=== PATIENT | female | born 1980 | race Caucasian/White ===

== ENCOUNTER → 2021-10-14 15:14 | Outpatient (CLI) | payer OTHER, SELFPAY ==
[2021-10-14 16:06] LABS: COVID19 -Nasal RAPID Negative (Negative)
== END ==
PROVIDERS: PCP Obstetrics & Gynecology; Visit Provider Obstetrics & Gynecology
DX: Z01.812 Encounter for preprocedural laboratory examination (principal); Z20.822 Contact with and (suspected) exposure to COVID-19
CPT/HCPCS: 87635

== ENCOUNTER 2021-10-15 12:19 | Day surgery (SDC) | payer OTHER, SELFPAY ==
[2021-10-14 08:20] VITALS: BMI 30.1
[2021-10-15] VITALS (12 sets, daily range): BP systolic 113–134; BP diastolic 68–81; PULSE 70–98; RESP 12–18; TEMP 36.3–37.3; O2SAT 96–100; BMI 30.1
--- NOTE | 2021-10-15 | PATH_ITS ---
[facility] Accession Number: [id number] . 01 Material submitted: . uterus - UTERUS, CERVIX, BILATERAL TUBES . 02 Diagnosis: Uterus, Cervix, Bilateral Fallopian Tubes, Hysterectomy and Bilateral Salpingectomy (Weight 142 grams): Cervix with prominent Nabothian gland cysts (anterior wall). Endocervix with prominent Nabothian gland cysts and no significant histomorphologic abnormality. Proliferative endometrium; negative for glandular hyperplasia, cytologic atypia, or malignancy. Myometrium with no significant histomorphologic abnormality. Uterine serosa with no significant histomorphologic abnormality. Fallopian tubes x2, complete cross sections; negative for atypia or malignancy. [facility] 10/21/2021 1530 Local . 02 Electronically signed: . Tosha Avelar MD, Pathologist NPI- [id number] . 01 Gross description: . The specimen is received in formalin, labeled uterus, cervix, bilateral tubes, and consists of a uterus (142 grams, 8.8 cm from fundus to cervix, 7.2 cm from cornu to cornu, 4.6 cm from anterior to posterior), and two detached fallopian tubes (3.2 x 1.0 cm and 3.3 x 0.6 cm). The anterior uterine wall is remarkable for a white-lopez firm to multiloculated lesion measuring 5.0 x 3.0 x 1.3 cm, and grossly abuts the anterior paracervical margin (inked green). The ectocervical mucosa is unremarkable, with a rounded and patent external os measuring 1.0 cm in diameter. Opening the uterus reveals an endometrial cavity measuring 4.2 cm in length x 2.8 cm in width. The endometrium (0.2 cm average thickness) is hemorrhagic, and upon sectioning, the myometrium (2.3 cm average thickness) is free of lesions or masses. Sectioning the fallopian tubes reveals stellate and patent lumens, free of gross abnormalities. The specimen is representatively submitted as follows: . A1: Entire fimbria and passenger representative cross sections of shorter fallopian tube. A2: Entire fimbria and passenger representative cross sections of longer fallopian tube. A3-A4: Bisected rep of anterior cervix at 12 o'clock, also to include closest approach to anterior paracervical margin. A5-A6: Full thickness reps of anterior endomyometrium. A7: Posterior cervix, 6 o'clock. A8-A9: Full thickness reps of posterior endomyometrium. ([id number]) /[facility] 10/16/2021 1714 Local . 02 Microscopic: . A panel of immunohistochemistry stains is performed to further evaluate the region of interest. The control stains show appropriate reactivity. . RESULTS: PAX8: Positive nuclear staining in regions of interest. CEA (Blocks A4 and A7): Patchy luminal staining in regions of interest. . The nuclear immunopositivity of PAX8 and lumnal immunostaining with CEA support an interpretation of prominent Nabothian gland cysts in this region and mitigate against minimal deviation adenocarcinoma. . . . * This test was developed and its performance characteristics determined by [facility]. It has not been cleared or approved by the U.S. Food and Drug Administration. The FDA has determined that such clearance or approval is not necessary. This test is used for clinical purposes. It should not be regarded as investigational or for research . 02 Pathologist provided ICD-10: N88.8 . 02 CPT . 969466, R83408, B29332 Specimen Comment: A courtesy copy of this report has been sent to [phone] Performed at: 01 [facility] [address] [place] [address], [place], [place] [id number] MD Jake Kelsey MD Phone: [phone] Performed at: 02 [facility] [address] [place] [id number] MD Lyly Ledesma MD Phone: [phone]
[2021-10-15] MEDS: LACTATED RINGERS 1,000 ML 42 ML IV ×2 (13:02→15:43)
--- NOTE | 2021-10-15 13:34 | PM.PREOP ---
Pre-operative Note COVID-19 COVID-19 status: Negative Result date/Date tested (Pos, Neg/Pending): 10/14/21 Criteria for continued procedure: Non-surgical alternatives not available or appropriate per current SOC Interval Note History & Physical reviewed/Exam performed by Physician: Yes Changes to H&P: No
[2021-10-15] MEDS: CEFAZOLIN 1 GM VIAL 2 GM IV (14:12)
--- NOTE | 2021-10-15 14:23 | SUR.OPER ---
Lithotomy on padded OR bed. Faucett Pad Positioner under torso. Head on pillow, arms padded and tucked at sides. Legs secured in padded yellow fins stirrups.
[2021-10-15] MEDS: ROPIVACAINE 0.2% PF 2 MG/ML 10ML AMP 20 ML INJ (15:29)
--- NOTE | 2021-10-15 16:11 | PM.GYNOP.1 ---
Operative Date/Time/Diagnoses Date of procedure: 10/15/21 Time of procedure: 14:00 Pre-op diagnosis: Menorrhagia Cervical inclusion cysts Post-coital bleeding Post-op diagnosis: same Procedure & Clinicians Procedure: Procedures Operation Date: 10/15/21 13:30 Actual Procedure Side Surgeon p Laparoscopic Assisted Vaginal Hysterectomy w. bilateral salpingectomies Not Applicable Ronald Fermin MD Indications: Sarai is a 41 yo LMP 08/23/2021 who was referred from [facility] for evaluation of postcoital bleeding, menorrhagia, and cervical cysts.? The patient experienced menarche at age 12 and has had regular predictable periods throughout her reproductive life.? Her periods have been heavy however lasting at least 3-4 days with the passage of clots and occasionally severe cramping.? The patient has in the past become anemic due to menstrual blood losses.? 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 Postcoital bleeding has continued since then and as part of evaluation for the postcoital bleeding as well as the menorrhagia, the patient underwent pelvic ultrasound in July 2021 which shows a normal anteverted uterus measuring 9.5 x 6.0 x 4.5 cm with a 6 mm endometrial stripe.? The cervix however has an elongated, mildly lobulated avascular cystic area adjacent to the anterior endocervix apparently in the anterior cervical wall measuring 2.4 x 2.8 x 0.9 cm with some faint internal linear markings.? Another 1.0 x 1.1 x 6.7 cm nabothian cyst of the cervix is seen slightly more inferior and posterior to the larger cystic lesion.? The cervix appears somewhat bulky and enlarged as a result of the cystic lesions especially is seen on transabdominal images.? The adnexae are unremarkable.? A follow-up pelvic MRI was obtained which showed multiple prominent cysts within the anterior cervix with the overall area of cysts measuring 4.3 x 3.0 x 1.7 cm in aggregate and confirm the presence of the smaller cervical cyst posteriorly.? No other abnormalities were noted.? Pap smear performed 07/29/2021 was normal and all Paps prior during her reproductive life have also been normal.? The patient denies any dyspareunia or intermenstrual spotting but does have to empty her bladder more frequently and feels sense of pelvic pressure in her bladder.? She denies UTI symptoms however. After consideration of all options, the patient has opted to proceed with laparoscopic-assisted vaginal hysterectomy with bilateral salpingectomy.? Patient is currently scheduled to have her surgery performed in the main OR of [facility] on 10/15/2021 and she presents today for her scheduled surgery. Surgeon: Ronald Fermin Associate Partner: Wilma Panchal Anesthesia Type: General Operative Notes Findings: The uterus is upper limits of normal size and both adnexa demonstrate changes consistent with prior partial salpingectomy for sterilization. Both ovaries are normal. Adjacent to the right cornua is an area of endometriosis involving the broad ligament and utero-ovarian ligament. This area was removed with the uterine specimen at the time of surgery. There was additionally a a superficial implant of endometriosis near the insertion of the right uterosacral ligament and it too was destroyed during the course of the surgery. The anterior aspect of the lower uterine segment had an elongated tubular appearing cystic structure consistent with an inclusion cyst from her prior cesareans which was most likely the cystic structure noted on imaging preop. The remainder of the pelvis and abdomen were normal to laparoscopic visualization. Closure Type: primary Specimen(s): portion of left tube, portion of right tube and uterus Applied: catheter Estimated blood loss (mL): 75 Blood products transfused: none Procedure in detail: The with the patient under satisfactory general endotracheal anesthesia in the modified dorsal lithotomy position, the perineum, vagina, and abdomen were prepped and draped in the usual fashion for TLH. A pre-surgical safety time-out was then taken in accordance with [facility] protocols. A speculum was then inserted in the vagina and the cervix grasped with a single-tooth tenaculum. The endocervical canal was then dilated to 6 mm and a VCare manipulator with medium cup was then placed in the usual manner. The umbilicus was then infiltrated with 0.5% Marcaine with epinephrine and a 5 mm vertical incision made in the skin. A Veress needle was used to insufflate the abdomen with carbon dioxide and once insufflated, a 5 mm to laparoscopic trocar and sleeve were placed through the umbilical incision. Confirmation of placement in the abdominal cavity was performed with laparoscopic visualization. At that point a 2nd and 3rd 5 mm laparoscopic port was placed in the left and right mid quadrants using a similar technique as to that used in the umbilicus. Using a 3 puncture technique the pelvis and abdomen were fully visualized with the findings as noted previously. There was a small band of adhesions to the anterior abdominal wall in the left mid quadrant which was divided with the power seal bipolar device. The patient was placed in Trendelenburg and attention turned to the left adnexa. The distal tubal remnant was then elevated with a grasping forcep and the fimbria varicose coagulated and divided with power seal device. The dissection was carried across the mesosalpinx and the specimen removed through 1 of the 5 mm ports. The dissection was then carried down the lateral aspect of the uterus across the utero-ovarian ligament and round with the dissection carried all the way down to the VCare cup. Once at the level of the cup, the bladder flap was initiated below the cystic structure noted anteriorly over the lower uterine segment. The bladder was advanced and vessels skeletonized on the left side. Vessels were then coagulated and divided with the power sees the dissection was carried across the peritoneum posteriorly. Attention was then turned to the right side with the distal tube grasped and elevated. The tubal remnant was then removed with the power seal device as it had been on the left. The dissection was then carried out with the power seal adjacent to the ovary on the right so as to be able to excise the area of endometriosis and that dissection was carried downward across the utero-ovarian ligament and round downward to the level of the VCare cup. The bladder flap was completed and the bladder further advanced. The posterior peritoneum was then skeletonized and the vessels secured on the right side with blanching of the uterus noted. Using monopolar current and a J-hook, the circumferential colpotomy was completed with the using the VCare cup as a guide and the specimen removed through the vagina. A weighted speculum was then inserted in the vagina and the cuff fully visualized. Angles were grasped with long Allis is and using 0 Vicryl in [id number] stitches the vaginal cuff was closed side to side. Hemostasis was excellent and attention was then turned to inspection of the pelvis laparoscopically. The abdomen was reinsufflated and pelvis carefully inspected for any signs of sites of bleeding. There was no bleeding even under lower pressure and both ureters were seen to be freely peristalsing. 20 cc of ropivacaine then placed in cul-de-sac and the pneumoperitoneum vented. Laparoscopic ports were then removed and the laparoscopic port incisions closed with 4-0 Monocryl using inverted interrupted stitches. Appropriate dressings were then applied after skin glue was used to secure the wounds and the patient was awakened from anesthesia having tolerated procedure well. She was then transferred to the PACU for a period of observation and recovery. Complications: none Post-operative Condition: stable Disposition: PACU Plan for aftercare: Routine postoperative care
[2021-10-15] MEDS: OXYCODONE/ACETAMINOPHEN 5/325 TABLET 1 TAB PO (16:22)
[2021-10-15] MEDS: LACTATED RINGERS 1,000 ML 100 ML IV (17:24)
[2021-10-15] MEDS: IBUPROFEN 600 MG TABLET PO (18:58)
[2021-10-15] MEDS: ACETAMINOPHEN 325 MG TABLET 650 MG PO (18:59)
[2021-10-15] MEDS: SERTRALINE 50 MG TABLET 150 MG PO (20:09)
[2021-10-15] MEDS: OXYCODONE IR 5 MG TABLET PO (21:50)
[2021-10-16] MEDS: IBUPROFEN 600 MG TABLET PO ×3 (00:21→11:47)
[2021-10-16] MEDS: ACETAMINOPHEN 325 MG TABLET 650 MG PO ×3 (00:21→11:47)
[2021-10-16 03:20] VITALS: BP 127/74; PULSE 79; RESP 18; TEMP 37.2
[2021-10-16 06:06] VITALS: TEMP 37.3
[2021-10-16] MEDS: buPROPion XL 150 MG TAB PO (08:32)
--- NOTE | 2021-10-16 10:29 | PM.DS.1 ---
History of Present Illness History of Present Illness Date Patient Seen: 10/16/21 Time Patient Seen: 10:05 Chief complaint: OPB Narrative: Sarai is a 41 yo LMP 08/23/2021 who was referred from [facility] for evaluation of postcoital bleeding, menorrhagia, and cervical cysts.? The patient experienced menarche at age 12 and has had regular predictable periods throughout her reproductive life.? Her periods have been heavy however lasting at least 3-4 days with the passage of clots and occasionally severe cramping.? The patient has in the past become anemic due to menstrual blood losses.? 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 Postcoital bleeding has continued since then and as part of evaluation for the postcoital bleeding as well as the menorrhagia, the patient underwent pelvic ultrasound in July 2021 which shows a normal anteverted uterus measuring 9.5 x 6.0 x 4.5 cm with a 6 mm endometrial stripe.? The cervix however has an elongated, mildly lobulated avascular cystic area adjacent to the anterior endocervix apparently in the anterior cervical wall measuring 2.4 x 2.8 x 0.9 cm with some faint internal linear markings.? Another 1.0 x 1.1 x 6.7 cm nabothian cyst of the cervix is seen slightly more inferior and posterior to the larger cystic lesion.? The cervix appears somewhat bulky and enlarged as a result of the cystic lesions especially is seen on transabdominal images.? The adnexae are unremarkable.? A follow-up pelvic MRI was obtained which showed multiple prominent cysts within the anterior cervix with the overall area of cysts measuring 4.3 x 3.0 x 1.7 cm in aggregate and confirm the presence of the smaller cervical cyst posteriorly.? No other abnormalities were noted.? Pap smear performed 07/29/2021 was normal and all Paps prior during her reproductive life have also been normal.? The patient denies any dyspareunia or intermenstrual spotting but does have to empty her bladder more frequently and feels sense of pelvic pressure in her bladder.? She denies UTI symptoms however. After consideration of all options, the patient has opted to proceed with laparoscopic-assisted vaginal hysterectomy with bilateral salpingectomy.? Patient is currently scheduled to have her surgery performed in the [facility] on 10/15/2021 and she presents today for her scheduled surgery. Discharge Providers Provider Date of admission: 10/15/2021 Discharge Date: 10/16/21 Primary care physician: YANCI Breen Discharge provider: Ronald Fermin MD Summary Hospital Course Discharge Diagnosis: Menorrhagia Cervical inclusion cysts Post-coital bleeding S/P total laparoscopic hysterectomy with bilateral salpingectomy Hospital Course: Sarai was admitted on 10/15/2021 and on the afternoon of 10/15/2001 underwent an uneventful total laparoscopic hysterectomy with bilateral salpingectomy. Details of the procedure well summarized on my operative note of that date. Following surgery the patient has done extremely well with prompt return of bowel and bladder function, she is ambulating independently, tolerating regular diet, and her pain is well controlled with oral medications. She will be discharged at this time in an afebrile normotensive condition to home with medications to include Cipro 500 mg p.o. b.i.d. x5 days for UTI prophylaxis, and oxycodone 5 mg tab 1 p.o. Q 4-6 hours as needed pain dispense 12 with no refills. Prior to discharge the patient was counseled regarding precautionary symptoms, limitations activity, medications, plans for follow-up which will be in 2 weeks. Status at Discharge Cognitive/behavioral status at discharge: at baseline, oriented Functional status at discharge: independent ambulation Overall status at discharge: patient is progressing back to baseline Time Spent with Patient Time spent: Less than 30 minutes Exam Vital Signs (past 8 hours): - 10/16/21 03:20 10/16/21 06:06 Temperature 99.0 F 99.2 F Pulse Rate 79 Respiratory Rate 18 Blood Pressure 127/74 Oxygen Delivery Method Room Air Oxygen Flow Rate 0 Const General: cooperative and comfortable Orientation: alert and oriented x3 HENMT Head: normal to inspection Ears: hearing grossly normal bilaterally Face and sinus: face symmetric Eyes General: appearance normal, both eyes and all related structures Conjunctivae: conjunctivae normal Sclera: sclerae normal EOM: EOM intact bilaterally Neck Neck: normal visual inspection Resp Effort & Inspection: normal respiratory effort and able to speak in complete sentences Auscultation: clear to auscultation bilaterally Cardio Rate: regular rate Rhythm: regular rhythm Heart Sounds: S1 normal, S2 normal and no murmurs GI Inspection: normal to inspection and incision (Laparoscopic port incision dressings clean and dry) Palpation: soft, no hepatosplenomegaly and tender (Minimal, diffuse bilateral lower quadrant) General: other (Deferred, no vaginal bleeding noted but patient or nursing staff) Skin General: no rashes or lesions noted Extrem General: normal to inspection and no calf tenderness Psych Appearance: grossly normal Mental Status: mental status grossly normal Speech and Movement: speech and movement normal Mood: congruent mood Affect: normal affect Attitude: cooperative Thought Process: normal Thought Content: normal Judgment: judgment good [facility] Medical History Abnormal Pap smear of cervix (~1999) Anemia (~2017) Asthma Low back pain Wears glasses Surgical History Anesthesia History of section History of female sterilization (~2015) Family History Father Prostate cancer Mother Depression Mental health problem Grandfather History of heart disease Grandmother Cancer Grandfather Dementia Grandmother Leukemia Social History household members: spouse and children Smoking Status: Former smoker alcohol intake: never Discharge Assessment & Plan Assessment and Plan Assessment: Menorrhagia Cervical inclusion cysts Post-coital bleeding S/P total laparoscopic hysterectomy with bilateral salpingectomy Plan of Treatment: Routine postoperative care with 2 week follow-up appointment scheduled. Discharge Plan Discharge Plan Patient Disposition: Home Provider Discharge Comment: Please review the written instructions provided when you were released from the hospital. Your follow-up appointment will be scheduled for 2 weeks after your surgery and I look forward to seeing you then. If in the meanwhile however you have any issues, concerns, or problems, please feel free to contact me through the office phone number [phone] or via the patient portal. Discharge orders & Medications Discharge Orders: Discharge (Order); Ordered 10/16/21 Ordered By: Ronald Fermin Prescriptions: New oxycodone 5 mg Tablet 5 mg PO Q4HR PRN (Reason: Pain, Moderate (4-6)) 3 Days Qty: 12 0RF ciprofloxacin HCl [Cipro] 500 mg tablet 500 mg PO BID 5 Days Qty: 10 0RF Continued bupropion HCl [Wellbutrin XL] 150 mg tablet extended release 24 hr 150 mg PO QAM 0RF sertraline [Zoloft] 50 mg tablet 150 mg PO DAILY 0RF Follow up/Referrals: Lucia Clements ARNP [Primary Care Provider] - Diet/Activity/Treatments Diet: Diet as Tolerated Activity: As tolerated Other treatments: [id number]-winqwok Tylenol (no more than 4000 mg per 24 hours) and/or ibuprofen (600 mg every 6 hours as needed or 800 mg every 8 hours as needed). Skin/Wound/Dressing Care Report to your healthcare provider any signs of infection, such as:: chills, fever, increased pain, unusual drainage and unusual redness Dressing: Dressings may be removed, a.m. 10/17/2021 Visit Report/Discharge Packet Instructions: DI for Hysterectomy, DI for Laparoscopy Stand Alone Forms: Surgery Discharge Discharge Data Primary Care Provider: Lucia Clements Attending Provider: Ronald Fermin VTE Deep Vein Thrombosis/Pulmonary Embolism Present on Admission: No
[2021-10-16] MEDS: OXYCODONE IR 5 MG TABLET PO (11:04)
--- NOTE | 2021-10-16 12:24 | PC.NURSE ---
Addendum entered by Jeremiah Grant R.N. 10/16/21 12:58: Patient tolerated lunch, Up without difficulty in room. Dressings remain CDI. Patient states she has been voiding without difficulty. Patient has no further questions or concerns. Escorted out via wheelchair by ELECTRICAL TECH/PROJECT MANAGER with all her belongings to home with her family. Original Note: Checking in on patient prior to her discharge to verify if she has any questions or concerns. Cesario Hale RN reviewed and completed discharge instructions and home care handouts with patient. She states understanding and has no further questions or concerns at this time. Patient waiting for her family for tow picker.
== END 2021-10-16 12:59 | disposition home or self-care (01) ==
LOC: OR 12:20 → AC 12:20
PROVIDERS: PCP Nurse Practitioner Family; Referring Provider Obstetrics & Gynecology; Visit Provider Obstetrics & Gynecology
PROC: 0UT9FZZ Resection of Uterus, Via Natural or Artificial Opening With Percutaneous Endoscopic Assistance (ICD-10-PCS; CPT 58552; principal; 2021-10-15 13:30)
DX: N92.0 Excessive and frequent menstruation with regular cycle (principal); N80.3 Endometriosis of pelvic peritoneum; N83.8 Other noninflammatory disorders of ovary, fallopian tube and broad ligament; K66.0 Peritoneal adhesions (postprocedural) (postinfection); N88.8 Other specified noninflammatory disorders of cervix uteri
CPT/HCPCS: 58552; J0690; J1100; J1885; J2250; J2405; J2704; J2795; J3010

== ENCOUNTER → 2024-11-28 13:11 | Outpatient (CLI) | payer OTHER, SELFPAY ==
[2021-10-15 17:39] VITALS: BMI 30.1
== END ==
PROVIDERS: Referring Provider Internal Medicine; Visit Provider Internal Medicine
DX: R06.02 Shortness of breath (principal)
CPT/HCPCS: 94060; 94726; 94729

== ENCOUNTER → 2024-12-27 08:49 | Outpatient (CLI) | payer OTHER, SELFPAY ==
[2021-10-15 17:39] VITALS: BMI 30.1
--- NOTE | 2024-12-27 08:50 | DI.CT.S_ITS ---
PROCEDURE: CT CHEST W CON INDICATIONS: rule out endobronchial lesion - carcionoid, hamartoma TECHNIQUE: After the administration of intravenous contrast, 5 mm thick sections acquired from the pulmonary apices to the posterior costophrenic angles. 1 mm axial lung, 5 mm thick coronal and sagittal reformats and 7 mm axial MIP were acquired. For radiation dose reduction, the following was used: automated exposure control, adjustment of mA and/or kV according to patient size. COMPARISON: None. FINDINGS: Image quality: Diagnostic. Lower Neck: No enlarged lymph nodes. Thyroid: No thyroid nodules which require sonographic follow up, per consensus guidelines. Axillae: No enlarged lymph nodes. Chest Wall: Unremarkable. Bones: Unremarkable. Lungs and Pleura: Trace pleural effusions. No consolidation or suspicious nodules. Heart: Heart size is normal. No pericardial effusion. Thoracic Vessels: The aorta and pulmonary arteries demonstrate normal size. Mediastinum and Maryann: No enlarged lymph nodes. Esophagus: No wall thickening. No hiatal hernia. Upper Abdomen: Small splenic and liver cysts. IMPRESSION: No endobronchial lesion. Trace pleural effusions. Dictated by: Subhash Ramachandran M.D. on 12/27/2024 at 12:36 Approved by: Subhash Ramachandran M.D. on 12/27/2024 at 12:38
== END ==
PROVIDERS: Referring Provider Internal Medicine; Visit Provider Internal Medicine
DX: R06.02 Shortness of breath (principal)
CPT/HCPCS: 71260; Q9967